=== PATIENT | female | born 1975 | race Two or more races ===

== ENCOUNTER 2023-11-23 03:20 | Emergency (ER) | payer OTHER ==
[~2023-11-23] VITALS: Ht 154.9 cm; Wt 104.3 kg
[~2023-11-23 03:20] MED LIST: SYNTHROID100 MCG; ZESTRIL2.5 MG; ZOLOFT100 MG
[2023-11-23] MEDS ORDERED: KETOROLAC TROMETHAMINE 60 MG VIAL IM STA (04:23)
[2023-11-23] MEDS ORDERED: DEXAMETHASONE SODIUM PHOSPHATE 4 MG/ML VIAL IM STA (04:24)
[2023-11-23] MEDS ORDERED: ACETAMINOPHEN 500 MG GEL..CAP PO STA (04:25)
== END 2023-11-23 04:40 | disposition home or self-care (01) ==
LOC: ER 03:20
DX: M94.0 Chondrocostal junction syndrome [Tietze] (principal); R07.89 Other chest pain

== ENCOUNTER 2024-04-01 00:13 | Emergency (ER) | payer OTHER ==
[~2024-04-01] VITALS: Ht 165.1 cm; Wt 99.8 kg
[2024-04-01] MEDS ORDERED: HYDROCODONE/CHLORPHEN P-STIREX 5 ML ML PO STA (02:44)
== END 2024-04-01 03:13 | disposition home or self-care (01) ==
LOC: ER 00:13
DX: J45.901 Unspecified asthma with (acute) exacerbation (principal)